=== PATIENT | male | born 1960 | race Caucasian/White ===

== ENCOUNTER 2020-03-30 09:54 | Inpatient (IN) | payer OTHER, SELFPAY ==
[~2020-03-30] VITALS: Ht 170.2 cm; Wt 111.0 kg
[2020-03-30 10:00] VITALS: Ht 170.2 cm; Wt 111.0 kg
[2020-03-30 10:43] LABS: BASOPHIL % 0.2 % (0-2); PLATELET COUNT 173 x10^3mcL (130-400)
[2020-03-30 10:50] LABS: RED CELL DISTRIBUTION WIDTH 14.6 % (11.5-14.5)
[2020-03-30 11:18] LABS: UA SPECIFIC GRAVITY >=1.030 (1.005-1.035); microscopic required? YES; urine erythrocyte 2+ (NEGATIVE)
[2020-03-30 11:21] LABS: CALCIUM 8.3 mg/dL (8.5-10.1); CARBON DIOXIDE 27.8 mmol/L (21-32); CHLORIDE SERUM 92 mmol/L (98-107); CREATININE SERUM 1.3 mg/dL (0.7-1.3); GFR1 > 60 mL/min; GLUCOSE SERUM 110 mg/dL (74-106); SODIUM SERUM 126 mmol/L (136-145)
[2020-03-30 11:25] LABS: ALBUMIN 3.4 g/dL (3.4-5.0); ALKALINE PHOSPHATASE 61 U/L (46-116); ALT/SGPT 28 U/L (16-63); AST/SGOT 47 U/L (15-37); BILIRUBIN TOTAL 0.31 mg/dL (0.20-1.00); LACTIC DEHYDROGENASE (LDH) 383 U/L (100-190)
[2020-03-30 11:27] LABS: C REACTIVE PROTEIN 12.9 mg/dL (<=0.9)
[2020-03-30] MEDS ORDERED: MICROZIDE12.5 MG PO (11:29)
[2020-03-30] MEDS ORDERED: HUMULIN R100 U/1 M1 IJ (11:29)
[2020-03-30] MEDS ORDERED: ASPIR 8181 MG PO (11:30)
[2020-03-30] MEDS ORDERED: SIMVASTATIN80 M1 PO (11:30)
[2020-03-30] MEDS ORDERED: PROTONIX TR40 M1 PO (11:30)
[2020-03-30] MEDS ORDERED: COZAAR50 M1 PO (11:31)
[2020-03-30] MEDS ORDERED: ACETAMINOPHEN650 M6 PO (11:31)
[2020-03-30] MEDS ORDERED: RAYOS5 MG PO (11:31)
[2020-03-30] MEDS ORDERED: DULOXETINE HYDR30 MG PO (11:32)
[2020-03-30 13:46] VITALS: BP 136/73
[2020-03-30 17:53] VITALS: BP 103/36
[2020-03-30 21:34] VITALS: BP 153/78
[2020-03-31 05:35] VITALS: BP 141/56
[2020-03-31 08:24] VITALS: BP 127/64
[2020-03-31 12:52] VITALS: BP 125/60
[2020-03-31 16:01] VITALS: BP 126/69
[2020-03-31 20:39] VITALS: BP 117/53
[2020-04-01 05:42] VITALS: BP 123/70
[2020-04-01 07:03] LABS: PLATELET COUNT 215 x10^3mcL (130-400)
[2020-04-01 07:32] LABS: C REACTIVE PROTEIN 10.4 mg/dL (<=0.9); CALCIUM 8.5 mg/dL (8.5-10.1); CARBON DIOXIDE 23.1 mmol/L (21-32); CHLORIDE SERUM 97 mmol/L (98-107); CREATININE SERUM 1.3 mg/dL (0.7-1.3); GFR1 > 60 mL/min; GLUCOSE SERUM 136 mg/dL (74-106); POTASSIUM SERUM 4.1 mmol/L (3.5-5.1); SODIUM SERUM 134 mmol/L (136-145)
[2020-04-01 08:35] LABS: BASOPHIL % 0 % (0-2); RED CELL DISTRIBUTION WIDTH 14.9 % (11.5-14.5)
[2020-04-01 09:00] VITALS: BP 125/63
[2020-04-01 13:19] VITALS: BP 126/58
[2020-04-01 13:55] VITALS: BP 113/75
[2020-04-01 16:18] VITALS: BP 100/58
[2020-04-01 23:50] VITALS: BP 150/75
[2020-04-02] VITALS (18 sets, daily range): BP systolic 78–138; BP diastolic 38–71
[2020-04-02 05:53] LABS: BASOPHIL % 0.1 % (0-2); PLATELET COUNT 262 x10^3mcL (130-400)
[2020-04-02 05:57] LABS: RED CELL DISTRIBUTION WIDTH 15.2 % (11.5-14.5)
[2020-04-02 06:02] LABS: CALCIUM 7.6 mg/dL (8.5-10.1); CARBON DIOXIDE 20.3 mmol/L (21-32); CREATININE SERUM 2.5 mg/dL (0.7-1.3); POTASSIUM SERUM 5.4 mmol/L (3.5-5.1)
[2020-04-03] VITALS (17 sets, daily range): BP systolic 101–133; BP diastolic 48–69
[2020-04-03 07:04] LABS: PLATELET COUNT 135 x10^3mcL (130-400)
[2020-04-03 07:06] LABS: BASOPHIL % 0 % (0-2); RED CELL DISTRIBUTION WIDTH 14.9 % (11.5-14.5)
[2020-04-03 07:36] LABS: ALBUMIN 2.9 g/dL (3.4-5.0); BILIRUBIN TOTAL 0.44 mg/dL (0.20-1.00); TOTAL PROTEIN, SERUM 6.8 g/dL (6.4-8.2)
[2020-04-03 07:39] LABS: CALCIUM 6.3 mg/dL (8.5-10.1); CARBON DIOXIDE 22.8 mmol/L (21-32); POTASSIUM SERUM 5.8 mmol/L (3.5-5.1)
[2020-04-03 07:40] LABS: CREATININE SERUM 5.1 mg/dL (0.7-1.3)
[2020-04-04 01:20] VITALS: BP 115/68
[2020-04-04 02:25] VITALS: BP 116/68
[2020-04-04 03:55] VITALS: BP 131/71
== END 2020-04-04 15:47 | disposition expired | DRG 871 ==
LOC: ED 09:54 → DU 11:31 → IC 04-01 23:18
PROVIDERS: Emergency Medicine; Internal Medicine; ADMIT Internal Medicine
PROC: 02HV33Z Insertion of Infusion Device into Superior Vena Cava, Percutaneous Approach (ICD-10-PCS; principal; 2020-04-03)
PROC: B548ZZA Ultrasonography of Superior Vena Cava, Guidance (ICD-10-PCS; 2020-04-03)
PROC: 5A1D70Z Performance of Urinary Filtration, Intermittent, Less than 6 Hours Per Day (ICD-10-PCS; 2020-04-04)
DX: A41.9 Sepsis, unspecified organism (principal); R65.21 Severe sepsis with septic shock; J12.9 Viral pneumonia, unspecified; J96.01 Acute respiratory failure with hypoxia; U07.1 COVID-19; J44.1 Chronic obstructive pulmonary disease with (acute) exacerbation; J44.0 Chronic obstructive pulmonary disease with (acute) lower respiratory infection; N17.9 Acute kidney failure, unspecified; Z68.45 Body mass index [BMI] 70 or greater, adult; E66.01 Morbid (severe) obesity due to excess calories; E87.5 Hyperkalemia; I10 Essential (primary) hypertension; E11.9 Type 2 diabetes mellitus without complications; Z88.0 Allergy status to penicillin; Z88.8 Allergy status to other drugs, medicaments and biological substances; Z88.6 Allergy status to analgesic agent; Z91.030 Bee allergy status
CPT/HCPCS: 36556; 36600; 82962; 83880; 85378; 94150; A4628; C9113; G0378; J0692; J0696; J1642; J1644; J1650; J1815; J2060; J2250; J2370; J2704; J2920; J3010; J3490; J7030; J7050; J7060; P9047; Q0092; U0003-CS